=== PATIENT | female | born 1960 | race Caucasian/White ===

== ENCOUNTER 2016-11-07 06:54 | Day surgery (SDC) | payer BC ==
[2016-11-01 11:41] LABS: ABSOLUTE EOSINOPHILS # (AUTO) 0.2 10^3/uL (0.0-0.6); ABSOLUTE LYMPHOCYTES (AUTO) 1.5 10^3/uL (0.5-4.7); ABSOLUTE MONOCYTES (AUTO) 0.5 10^3/uL (0.1-1.4); ABSOLUTE NEUT (AUTO) 3.2 10^3/uL (1.7-8.2); BASOPHILS % (AUTO) 0.9 % (0-2); EOSINOPHILS % (AUTO) 3.4 % (0-6); HEMATOCRIT 41.4 % (36.0-47.0); HEMOGLOBIN 14.2 g/dL (12.0-15.5); HGB HCT DIFFERENCE 1.2; LYMPHOCYTES % (AUTO) 28.1 % (13-45); MEAN CORPUSCULAR HEMOGLOBIN 32.4 pg (27.0-33.4); MEAN CORPUSCULAR HGB CONC 34.3 g/dL (32.0-36.0); MEAN CORPUSCULAR VOLUME 94 fl (80-97); MONOCYTES % (AUTO) 8.4 % (3-13); RED BLOOD COUNT 4.39 10^6/uL (3.72-5.28); RED CELL DISTRIBUTION WIDTH 12.9 % (11.5-14.0); SEGMENTED NEUTROPHILS % (AUTO) 59.2 % (42-78); WHITE BLOOD COUNT 5.4 10^3/uL (4.0-10.5)
[2016-11-01 11:50] LABS: APPEARANCE,URINE SLIGHTLY-CLOUDY; BILIRUBIN,URINE NEGATIVE (NEGATIVE); GLUCOSE, URINE NEGATIVE (NEGATIVE); KETONES,URINE NEGATIVE (NEGATIVE); LEUKOCYTE ESTERASE,URINE TRACE (NEGATIVE); NITRITE,URINE NEGATIVE (NEGATIVE); PROTEIN,URINE NEGATIVE (NEGATIVE); URINE SPECIFIC GRAVITY 1.009; UROBILINOGEN,URINE NEGATIVE mg/dL (<2.0)
[2016-11-01 12:00] LABS: ANION GAP 12 (5-19); BLOOD UREA NITROGEN 12 mg/dL (7-20); CALCIUM 10.2 mg/dL (8.4-10.2); CARBON DIOXIDE 29 mmol/L (22-30); CHLORIDE 99 mmol/L (98-107); CREATININE RESULT 0.73 mg/dL (0.52-1.25); GLUCOSE 91 mg/dL (75-110); SODIUM 139.9 mmol/L (137-145)
--- NOTE | 2016-11-01 14:20 | EKG REPORT ---
SEVERITY:- OTHERWISE NORMAL ECG - SINUS RHYTHM BORDERLINE LEFT AXIS DEVIATION : Confirmed by: Freddie Chavez 01-Nov-2016 14:19:35
[~2016-11-07 06:54] MED LIST: CEFAZOLIN 2 GM/D5W RTU 2 GM/50 ML RTUPB IV PRN; LACTATED RINGERS 1000 ML IV PRN; LIDOCAINE 0.5% INJ-PF (5 MG/ML) 50 ML SDV SUBCUT PRN
[2016-11-07] MEDS ORDERED: BUPIVACAINE HCL 0.5%-EPI 1:200000 INJ/PF 30 ML VIAL ONE (08:32)
[2016-11-07] MEDS ORDERED: PROPOFOL INJ 200 MG/20 ML VIAL IV ONE (08:51)
[2016-11-07] MEDS ORDERED: MIDAZOLAM 2 MG/2 ML INJ ONE (08:51)
[2016-11-07] MEDS ORDERED: FENTANYL CITRATE INJ/PF 100 MCG/2 ML AMPUL ONE (08:51)
[2016-11-07] MEDS ORDERED: LIDOCAINE 1% INJ-PF (10 MG/ML) 30 ML SDV ONE (09:12)
[2016-11-07] MEDS ORDERED: FENTANYL CITRATE INJ/PF 100 MCG/2 ML AMPUL IV PRN ×3 (09:28)
[2016-11-07] MEDS ORDERED: PROMETHAZINE HCL INJ 25 MG/1 ML VIAL IV PRN ×2 (09:28)
[2016-11-07] MEDS ORDERED: DIPHENHYDRAMINE HCL 50 MG/ML VIAL IV PRN (09:28)
[2016-11-07] MEDS ORDERED: OXYCODONE-ACETAMINOPHEN 5-325 MG TABLET PO PRN ×2 (09:28)
[2016-11-07] MEDS ORDERED: MORPHINE SULFATE 10 MG/ML INJ IV PRN (09:28)
[2016-11-07] MEDS ORDERED: MEPERIDINE HCL/PF INJ 25 MG/1 ML DISP.SYRIN IV PRN (09:28)
[2016-11-07] MEDS: FENTANYL CITRATE INJ/PF 100 MCG/2 ML AMPUL ONE ×2 (10:10→10:25)
[2016-11-07] MEDS ORDERED: ONDANSETRON 4 MG TAB.RAPDIS PO PRN (10:25)
[2016-11-07] MEDS ORDERED: OXYCODONE HCL IR 5 MG TABLET PO PRN (10:25)
[2016-11-07] MEDS ORDERED: ONDANSETRON HCL INJ/PF 4 MG/2 ML SDV IV PRN (10:29)
--- NOTE | 2016-11-07 10:58 | Operative Report ---
Operative Report DATE OF SURGERY: 11/07/16 PREOPERATIVE DIAGNOSIS: Status post open reduction internal fixation right ankle fracture with retained hardware OPERATION: Hardware removal, right ankle SURGEON: ALLISON GONZALEZ ANESTHESIA: LMAC TISSUE REMOVED OR ALTERED: 8 screws and 1 plate PROCEDURE: With the patient supine operative table the right looks terms prepped and draped in a sterile fashion. The skin overlying the lateral fibular incision is insufflated insufflated with accommodation of Xylocaine, Marcaine, and epinephrine. Subsequently a longitudinal incision was made. The underlying plate is identified. 6 screws were removed. The subsequent plate is easily removed. The wound is irrigated. Attention standard turned to the medial aspect of the ankle. A longitudinal incision was made over the medial malleolus and with the help of fluoroscopic guidance the 2 cannulated screws are identified and removed. At this point, both wounds are irrigated with bulb lavage and closed using interrupted nylon. A sterile compressive dressing was applied and the patient' s returned to PACU in satisfactory condition.
[2016-11-07 12:07] VITALS: BP 143/79
== END 2016-11-07 12:09 | disposition home or self-care (01) ==
LOC: OROUT 06:54
PROVIDERS: ATTEND Orthopaedic Surgery
PROC: 0QPJ04Z Removal of Internal Fixation Device from Right Fibula, Open Approach (ICD-10-PCS; principal; 2016-11-07 08:45)
DX: Z47.2 Encounter for removal of internal fixation device (principal); M25.571 Pain in right ankle and joints of right foot; E78.5 Hyperlipidemia, unspecified; E66.01 Morbid (severe) obesity due to excess calories; I10 Essential (primary) hypertension; M06.9 Rheumatoid arthritis, unspecified; Z79.899 Other long term (current) drug therapy; Z68.44 Body mass index [BMI] 60.0-69.9, adult; Z87.11 Personal history of peptic ulcer disease; Z87.891 Personal history of nicotine dependence
CPT/HCPCS: 93005; 36415; 85025; 80048; 81001; 73600; 71020; 93010; 20680; C1713; J2250; J3490 ×2; J3010; J2704; J0690; 01480

== ENCOUNTER 2019-03-10 07:23 | Day surgery (SDC) | payer BC, OTHER ==
[2019-03-10] MEDS ORDERED: ONDANSETRON HCL INJ/PF 4 MG/2 ML SDV ONE (07:29)
[2019-03-10] MEDS ORDERED: FLUMAZENIL INJ 0.5 MG/5 ML VIAL ONE (07:29)
[2019-03-10] MEDS ORDERED: EPINEPHRINE INJ 1 MG/10 ML DISP.SYRIN ONE (07:29)
[2019-03-10] MEDS ORDERED: GLUCAGON,HUMAN RECOMB 1 MG INJ ONE (07:29)
[2019-03-10] MEDS ORDERED: NALOXONE HCL INJ/PF 0.4 MG/1 ML SDV ONE (07:29)
[2019-03-10] MEDS ORDERED: DIPHENHYDRAMINE HCL 50 MG/ML VIAL ONE (07:29)
[2019-03-10] MEDS: MIDAZOLAM 2 MG/2 ML INJ ONE ×3 (08:14→08:23)
[2019-03-10] MEDS: FENTANYL CITRATE INJ/PF 100 MCG/2 ML AMPUL ONE ×2 (08:16→08:18)
--- NOTE | 2019-03-10 08:52 | Discharge Summary ---
Discharge Summary (SDC) - Discharge Final Diagnosis: abdominal pain, hx of gastric bypass Date of Surgery: 03/10/19 Condition: Good Treatment or Instructions: resume previous meds and diet Referrals: REYNOLD GRIFFITH NP [Primary Care Provider] - Discharge Diet: As Tolerated Discharge Activity: Activity As Tolerated Report the Following to Your Physician Immediately: Increase in Pain - needs appoint iwth me in 1-2 wks.
--- NOTE | 2019-03-10 09:07 | Operative Report ---
Nonrecallable Operative Report DATE OF SURGERY: 03/10/19 PREOPERATIVE DIAGNOSIS: abdominal pain s/p gastric bypass POSTOPERATIVE DIAGNOSIS: abdominal pain s/p gastric bypass OPERATION: esophagogastroduodenoscopy. SURGEON: WYATT LAUGHLIN ANESTHESIA: Moderate Sedation COMPLICATIONS: none ESTIMATED BLOOD LOSS: 0 INTRAOPERATIVE FINDINGS: see procedure note PROCEDURE: Patient was brought to the endoscopy suite awake alert stable condition placed on the exam table in a left lateral decubitus position and given IV Versed and fentanyl for sedation. After an appropriate timeout and site verification procedure began. 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 We noted a some ulcerations around the gastro-gastric fistula with a visible suture. We passed through the gastro-gastric fistula into the [id number] stomach that appeared to have evidence of gastritis as we passed up to the pylorus we noted distal gastritis and erythema around the pylorus we able to intubate the pylorus and identified the proximal duodenum also appeared to have some duodenitis. As we slowly withdrew the scope back into the gastric remnant and then back into the gastric pouch retroflexed the scope and noted a small hiatal hernia. 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 2. Distal gastritis. 3. Duodenitis Recommendations #1 patient was started on high dose Protonix as well as necrotic enzyme replacement (Creon) She will continue this for the next 1 to 2 weeks and follow-up with me in 2 weeks for further discussion I discussed findings with her .
[2019-03-10 09:36] VITALS: BP 100/58
== END 2019-03-10 09:45 | disposition home or self-care (01) ==
LOC: END 07:23
PROVIDERS: ATTEND Surgery
DX: K29.70 Gastritis, unspecified, without bleeding (principal); K29.80 Duodenitis without bleeding; Z98.84 Bariatric surgery status; Z01.818 Encounter for other preprocedural examination; R10.9 Unspecified abdominal pain; I10 Essential (primary) hypertension; R01.1 Cardiac murmur, unspecified; J45.909 Unspecified asthma, uncomplicated; E78.00 Pure hypercholesterolemia, unspecified; Z87.891 Personal history of nicotine dependence; Z79.899 Other long term (current) drug therapy
CPT/HCPCS: 43235; J2250; J3010; J0171; J1200; J1610; J2310; J2405; J3490

== ENCOUNTER 2019-06-18 12:26 | Day surgery (SDC) | payer OTHER ==
[2019-06-12 10:48] LABS: ABSOLUTE BASOPHILS # (AUTO) 0.1 10^3/uL (0.0-0.2); ABSOLUTE EOSINOPHILS # (AUTO) 0.4 10^3/uL (0.0-0.6); ABSOLUTE LYMPHOCYTES (AUTO) 1.4 10^3/uL (0.5-4.7); ABSOLUTE MONOCYTES (AUTO) 0.4 10^3/uL (0.1-1.4); ABSOLUTE NEUT (AUTO) 3.6 10^3/uL (1.7-8.2); BASOPHILS % (AUTO) 0.9 % (0-2); HEMATOCRIT 38.7 % (36.0-47.0); LYMPHOCYTES % (AUTO) 24.1 % (13-45); MEAN CORPUSCULAR HEMOGLOBIN 31.6 pg (27.0-33.4); MEAN CORPUSCULAR HGB CONC 33.6 g/dL (32.0-36.0); MEAN CORPUSCULAR VOLUME 94 fl (80-97); MONOCYTES % (AUTO) 7.1 % (3-13); PLATELET COUNT 278 10^3/uL (150-450); RED BLOOD COUNT 4.12 10^6/uL (3.72-5.28); RED CELL DISTRIBUTION WIDTH 12.7 % (11.5-14.0); SEGMENTED NEUTROPHILS % (AUTO) 61.9 % (42-78); TOTAL CELLS COUNTED % (AUTO) 100 %; WHITE BLOOD COUNT 5.9 10^3/uL (4.0-10.5)
--- NOTE | 2019-06-12 13:02 | EKG REPORT ---
SEVERITY:- NORMAL ECG - SINUS RHYTHM : Confirmed by: Radha Jackson MD 12-Jun-2019 13:00:41
[~2019-06-18 12:26] MED LIST changes: -CEFAZOLIN 2 GM/D5W RTU 2 GM/50 ML RTUPB IV PRN; +CEFAZOLIN SODIUM 1 GM in DEXTROSE 5%-WATER 50 ML IV PRN; +GLYCOPYRROLATE 1 MG/5 ML VIAL ONE; -LACTATED RINGERS 1000 ML IV PRN; -LIDOCAINE 0.5% INJ-PF (5 MG/ML) 50 ML SDV SUBCUT PRN; +NEOSTIGMINE METHYLSULFATE 10 MG/10 ML VIAL ONE; +RINGERS SOLUTION,LACTATED 1,000 ML IV PRN; +ROCURONIUM BROMIDE INJ 50 MG/5 ML VIAL IV ONE; +SUCCINYLCHOLINE CHLORIDE INJ 200 MG/10 ML VIAL ONE
[2019-06-18] MEDS ORDERED: MIDAZOLAM 2 MG/2 ML INJ ONE ×2 (13:36→15:01)
[2019-06-18] MEDS ORDERED: BUPIVACAINE HCL 0.25 % INJ/PF (2.5 MG/1 ML) 30 ML VIAL ONE (14:29)
[2019-06-18] MEDS ORDERED: FENTANYL CITRATE INJ/PF 100 MCG/2 ML AMPUL ONE ×2 (15:00→17:02)
[2019-06-18] MEDS ORDERED: KETOROLAC TROMETHAMINE 60 MG/2 ML SDV ONE (15:00)
[2019-06-18] MEDS ORDERED: MORPHINE SULFATE 10 MG/ML INJ ONE (15:01)
[2019-06-18] MEDS ORDERED: DEXAMETHASONE SOD PHOSPHATE INJ 4 MG/1 ML VIAL ONE (15:01)
[2019-06-18] MEDS ORDERED: PROPOFOL INJ 200 MG/20 ML VIAL IV ONE (15:01)
[2019-06-18] MEDS ORDERED: ONDANSETRON HCL INJ/PF 4 MG/2 ML SDV ONE (15:01)
[2019-06-18] MEDS ORDERED: MEPERIDINE HCL/PF INJ 25 MG/1 ML DISP.SYRIN IV PRN (16:00)
[2019-06-18] MEDS ORDERED: PROMETHAZINE HCL INJ 25 MG/1 ML VIAL IV PRN (16:00)
[2019-06-18] MEDS ORDERED: DIPHENHYDRAMINE HCL 50 MG/ML VIAL IV PRN (16:00)
[2019-06-18] MEDS ORDERED: MORPHINE SULFATE 10 MG/ML INJ IV PRN (16:00)
[2019-06-18] MEDS ORDERED: FENTANYL CITRATE INJ/PF 100 MCG/2 ML AMPUL IV PRN ×2 (16:00)
[2019-06-18] MEDS: BUPIVACAINE INJ/PF LIPOSOME/PF 266 MG/20 ML SDV ONE ×2 (16:08→16:20)
[2019-06-18] MEDS ORDERED: OXYCODONE-ACETAMINOPHEN 5-325 MG TABLET PO PRN (16:56)
--- NOTE | 2019-06-18 16:56 | Discharge Summary ---
Discharge Summary (SDC) - Discharge Final Diagnosis: Incisional hernia and lipoma left upper quadrant Date of Surgery: 06/18/19 Discharge Date: 06/18/19 Condition: Good Referrals: TREMAYNE JESUS DO [Primary Care Provider] - Discharge Diet: As Tolerated Discharge Activity: Activity As Tolerated, No Lifting Over 10 Pounds Report the Following to Your Physician Immediately: Increase in Pain, Yellow Skin, Fever over 101 Degrees, Unusual Bleeding - Needs a follow-up appointment with me in 10 to 14 days
--- NOTE | 2019-06-18 17:02 | Operative Report ---
Nonrecallable Operative Report DATE OF SURGERY: 06/18/19 PREOPERATIVE DIAGNOSIS: Abdominal pain, incisional hernia left upper quadrant POSTOPERATIVE DIAGNOSIS: Abdominal pain multiple midline and left upper quadrant incisional hernias. OPERATION: Incisional hernia repair and excision of lipoma left upper quadrant SURGEON: WYATT LAUGHLIN ANESTHESIA: GA TISSUE REMOVED OR ALTERED: Lipoma COMPLICATIONS: None ESTIMATED BLOOD LOSS: 25 cc INTRAOPERATIVE FINDINGS: See dictation PROCEDURE: Patient was brought the operating room awake alert in stable condition placed in the operative in supine position induced under general anesthesia and intubated. After appropriate timeout and site verification the procedure commenced. Left upper quadrant the patient had a palpable defect and swelling in the preop area and this was previously marked. A transverse incision was made about 12 cm long in the left upper quadrant we carried dissection out through subcutaneous tissue with Bovie cautery medially and noted a lipomatous mass underneath the subcutaneous tissue which was excised with Bovie cautery. We then reached the fascia the rectus muscle and there was a small defect that was noted and I was able to gently insert my finger through the defect and noted the sac with the lead into the abdominal cavity I therefore excised the sac and gained access to the peritoneum. There was multiple adhesions circumferentially around the undersurface of the rectus fascia and I therefore opened the hernia defect slightly with Bovie cautery to gain better access and in fact palpated 2 small incisional hernias in the midline through this defect. I cleared the area all her tissue and adhesions away from the undersurface of the rectus fascia and identified the Richy limb extending up to the gastric pouch. I did not open the incision further I was able to close the midline hernia defects with 0 Vicryl interrupted placed times 4 sutures to close 2 separate small 1 cm midline fascial defects. The other lateral defect that I had previously enlarged was also closed in 2 layers the posterior rectus sheath was closed with a running 0 Vicryl suture and the anterior rectus sheath was closed with interrupted 0 Vicryl sutures the area was anesthetized with Exparel L. The subcutaneous tissue was then reapproximated with interrupted 3-0 Vicryl sutures and skin was closed with intracuticular 4-0 Biosyn. Steri-Strips completed the procedure and abdominal binder was placed estimated blood loss for the procedure was less than 25 cc sponge needle counts were correct x2 the patient was awakened in the operative extubated transferred recovery in stable condition no complications
[2019-06-18] MEDS: FENTANYL CITRATE INJ/PF 100 MCG/2 ML AMPUL IV PRN ×2 (17:05→17:24)
[2019-06-18 18:55] VITALS: BP 132/65
== END 2019-06-18 19:09 | disposition home or self-care (01) ==
LOC: OROUT 12:26
PROVIDERS: ATTEND Surgery
DX: K43.2 Incisional hernia without obstruction or gangrene (principal); D17.1 Benign lipomatous neoplasm of skin and subcutaneous tissue of trunk; I10 Essential (primary) hypertension; R01.1 Cardiac murmur, unspecified; J45.909 Unspecified asthma, uncomplicated; Z96.653 Presence of artificial knee joint, bilateral; E78.00 Pure hypercholesterolemia, unspecified; Z79.899 Other long term (current) drug therapy; F17.210 Nicotine dependence, cigarettes, uncomplicated
CPT/HCPCS: 93005; 36415; 80051; 85025; 93010; 49560; 22902; C1713; J2250; J0690; J3490 ×2; J1100; J1885; J3010; J2710; J0330; J2405; J7060; J2704; C9290; 750; J2270